=== PATIENT | female | born 1945 | race Caucasian/White ===

== ENCOUNTER 2019-05-15 07:55 | Emergency (ER) | payer OTHER, MEDICARE ==
[2019-05-15 08:14] VITALS: BP 156/81; PULSE 66; TEMP 98.3; BMI 27.3
[2019-05-15] MEDS ORDERED: ACETAMINOPHEN 325 MG TABLET (FP) PO ONE (08:37)
--- NOTE | 2019-05-15 08:38 | PDOC ---
History of Present Illness - General Chief Complaint: Injury Stated Complaint: FELL ON WRIST Time Seen by Provider: 05/15/19 08:17 History Source: Patient Exam Limitations: No Limitations Past History - Travel Traveled outside of the country in the last 30 days: No Close contact w/someone who was outside of country & ill: No - Past Medical History Allergies/Adverse Reactions: Allergies Allergy/AdvReac Type Severity Reaction Status Date / Time Penicillins Allergy Verified 05/15/19 08:07 Home Medications: Ambulatory Orders Aspirin [ASA -] 81 mg PO DAILY 05/15/19 Carvedilol 25 mg PO BID 05/15/19 Enalapril Maleate [Vasotec -] 10 mg PO DAILY 05/15/19 Furosemide 20 mg PO DAILY 05/15/19 - Psycho Social/Smoking Cessation Hx Smoking History: Never smoked Hx Alcohol Use: No Drug/Substance Use Hx: No Review of Systems - Review of Systems Able to Perform ROS?: Yes Comments:: 05/15/19 15:11 CONSTITUTIONAL: Absent: fever, chills, diaphoresis, generalized weakness, malaise, loss of appetite HEENT: Absent: rhinorrhea, nasal congestion, throat pain, throat swelling, difficulty swallowing, mouth swelling, ear pain, eye pain, visual Changes CARDIOVASCULAR: Absent: chest pain, loss of consciousness, palpitations, irregular heart rate, peripheral edema RESPIRATORY: Absent: cough, shortness of breath, dyspnea with exertion, orthopnea, wheezing, stridor, hemoptysis GASTROINTESTINAL: Absent: abdominal pain, abdominal distension, nausea, vomiting, diarrhea, constipation, melena, hematochezia GENITOURINARY: Absent: dysuria, frequency, urgency, hesitancy, hematuria, flank pain, genital pain MUSCULOSKELETAL: Present: R wrist pain Absent: myalgia, arthralgia, joint swelling SKIN: Absent: rash, itching, pallor HEMATOLOGIC/IMMUNOLOGIC: Absent: easy bleeding, easy bruising, lymphadenopathy, frequent infections ENDOCRINE: Absent: unexplained weight gain, unexplained weight loss, heat intolerance, cold intolerance NEUROLOGIC: Absent: headache, focal weakness or paresthesias, dizziness, unsteady gait, seizure, mental status changes, bladder or bowel incontinence PSYCHIATRIC: Absent: anxiety, depression, suicidal or homicidal ideation, hallucinations. Is the patient limited Yoruba proficient: No *Physical Exam - Vital Signs Last Vital Signs Temp Pulse Resp BP Pulse Ox 98.3 F 66 16 156/81 99 05/15/19 08:00 05/15/19 08:00 05/15/19 08:00 05/15/19 08:00 05/15/19 08:00 - Physical Exam Comments: 05/15/19 15:11 GENERAL: Well developed, well nourished. Awake and alert. No acute distress. HEENT: Normocephalic, atraumatic. PERRLA, EOMI. No conjunctival pallor. Sclera are non- icteric. Moist mucous membranes. Oropharynx is clear. NECK: Supple. Full ROM. No JVD. Carotid pulses 2+ and symmetric, without bruits. No thyromegaly. No lymphadenopathy. CARDIOVASCULAR: Regular rate and rhythm. No murmurs, rubs, or gallops. Distal pulses are 2+ and symmetric. PULMONARY: No evidence of respiratory distress. Lungs clear to auscultation bilaterally. No wheezing, rales or rhonchi. ABDOMINAL: Soft. Non-tender. Non-distended. No rebound or guarding. No organomegaly. Normoactive bowel sounds. MUSCULOSKELETAL Patient unable to range the right wrist with obvious deformity and swelling. PMS intact for the right hand. Full range of motion of the right elbow noted. No CVA tenderness. EXTREMITIES: No cyanosis. No clubbing. No edema. No calf tenderness. SKIN: Abrasion noted to the nose and left eyebrow. Warm and dry. Normal capillary refill. No rashes. No jaundice. NEUROLOGICAL: Alert, awake, appropriate. Cranial nerves 2-12 intact. No deficits to light touch and temperature in face, upper extremities and lower extremities. No motor deficits in the in face, upper extremities and lower extremities. Normoreflexic in the upper and lower extremities. Normal speech. Toes are down- going bilaterally. Gait is normal without ataxia. PSYCHIATRIC: Cooperative. Good eye contact. Appropriate mood and affect. Procedures - Splinting Splint Location: Right: Wrist Pre-Proc Neuro Vasc Exam: normal Hand-Made Type: orthoglass Splint Type: Yes: Brittney Tong Post-Proc Neuro Vasc Exam: unchanged from pre-exam Pako Bandage: 4" Sling: Yes Post splint xray: Yes Good repositioning: Yes (after 3rd reduction attempt) - Joint Reduction Right Joint Reduction Site: right: Colles' Fracture Pre-Procedure NV Exam: normal Conscious Sedation: No Finger Block: Hematoma Anesthetic: 2% Lidocaine Amount (mL): 10 Procedure: Colles Reduction Post-Procedure NV Exam: normal Complications: No Medical Decision Making - Medical Decision Making 05/15/19 15:12 The patient is a 73-year-old female with past medical history of hypertension, hyperlipidemia, presents to the ER today with right wrist pain. She states that she was walking into the supermarket when she tripped on the curb and fell. She states that she had her right hand outstretched to catch her fall. She states that since falling she is unable to move her right wrist. She notes that she scraped her nose and her left eyebrow. She denies loss of consciousness and is not on blood thinners. Denies fevers, chills, numbness and tingling to the affected extremity. The patient is right-hand dominant. A/P: Right Colles' fracture On exam patient unable to range the right wrist due to pain and swelling of the joint. Obvious deformity noted. X-ray shows a displaced Colles' fracture. Consulted with KAIN Wright for Drs. Cook and Mark. Recommends reduction and splinting at this time. Hematoma block placed after consent was obtained. The right wrist was reduced after 3 attempts. See procedure note. Patient placed in sugar tong splint and discharged home with sling. Tylenol given for pain, patient refuses any opioids Strict return precautions given. Explained to patient that she needs to follow- up with orthopedics on Friday for further management of her injury especially since she has affected her dominant hand. Discharge home. I discussed the physical exam findings, ancillary test results and final diagnoses with the patient. I answered all of the patient's questions. The patient was satisfied with the care received and felt comfortable with the discharge plan and treatment plan. The Patient agrees to follow up with the primary care physician/specialist within 24-72 hours. Return precautions were given. Discharge - Discharge Information Problems reviewed: Yes Clinical Impression/Diagnosis: Fracture, Colles, right, closed Qualifiers: Encounter type: initial encounter Qualified Code(s): S52.531A - Colles' fracture of right radius, initial encounter for closed fracture Condition: Good Disposition: HOME - Follow up/Referral Referrals: Beto Cook MD [Staff Physician] - Td Flores MD [Staff Physician] - - Patient Discharge Instructions Patient Printed Discharge Instructions: DI for Wrist Fracture, How to Prevent Falls Additional Instructions: You were evaluated for your broken wrist today. A splint was placed. Do not remove the splint until you can see orthopedics. Keep the splint dry. Do not get it wet while showering. You may put a plastic bag over the wrist. Please take Tylenol 650 mg every 6 hours for pain. Please wear the sling during the day to help keep the wrist elevated Please call orthopedics on Friday for a follow-up this week. The referral for Dr. Cook and Dr. Flores has been provided. Return to the ER for worsening pain, numbness and tingling to the arm, or if you have any changes in your symptoms. - Post Discharge Activity
[2019-05-15] MEDS ORDERED: ACETAMINOPHEN 325 MG TABLET (FP) ONE (09:18)
[2019-05-15] MEDS ORDERED: LIDOCAINE HCL 2% (50ML VIAL) SQ ONE (09:39)
[2019-05-15] MEDS ORDERED: LIDOCAINE HCL 2% (20ML MULTI-DOSE VIAL) NR ONE (09:54)
--- NOTE | 2019-05-15 10:46 | PDOC ---
*Physical Exam - Vital Signs Last Vital Signs Temp Pulse Resp BP Pulse Ox 98.3 F 66 16 156/81 99 05/15/19 08:00 05/15/19 08:00 05/15/19 08:00 05/15/19 08:00 05/15/19 08:00 ED Treatment Course - Medications Given in the ED: ED Medications Discontinued Medications Generic Name Dose Route Start Last Admin Trade Name Hermila PRN Reason Stop Dose Admin Lidocaine HCl 10 mg 05/15/19 09:39 05/15/19 10:23 Xylocaine 2% SQ 05/15/19 09:40 10 mg ONCE ONE Administration Medical Decision Making - Medical Decision Making 05/15/19 10:42 The patient was seen and evaluated in conjunction with midlevel provider under my direct supervision, ancillary studies were reviewed. I agree with the plan as outlined with KAIN Banda. HPI, workup/dispo as outlined. VS reviewed, wnl. xray with right colles fx after foosh neurovasc intact. obvious deformity noted. POCUS MSK performed at bedside for rt wrist pain, hematoma block. views obtained : long axis of right wrist, distal radius fracture. hematoma noted. findings include distal radius/colles fx. Impression: fracture, hematoma block procedural guidance hematoma block with local 2% anesthesia, 10ml. US guidance for procedure. hematoma identified. neg aspiration. infiltrated appropriately. no complications. fracture reduced with hyperextension then flexion and manual pressure, with traction. i supervised procedure with KAIN Banda, see separate procedure notes sugar tong splint post red Xray f/u Joey/Mark, had consulted and spoke with KAIN Wright. anticipate discharge, pcp followup, return precautions, splint care instructions 05/15/19 10:42 05/15/19 10:45 Discharge - Discharge Information Problems reviewed: Yes Clinical Impression/Diagnosis: Fracture, Colles, right, closed Qualifiers: Encounter type: initial encounter Qualified Code(s): S52.531A - Colles' fracture of right radius, initial encounter for closed fracture Condition: Good Disposition: HOME - Admission No - Follow up/Referral Referrals: Beto Cook MD [Staff Physician] - Td Flores MD [Staff Physician] - - Patient Discharge Instructions Patient Printed Discharge Instructions: DI for Wrist Fracture, How to Prevent Falls - Post Discharge Activity
== END 2019-05-15 13:05 | disposition home or self-care (01) ==
LOC: JER 07:55
PROC: 0PSHXZZ Reposition Right Radius, External Approach (ICD-10-PCS; principal; 2019-05-15)
PROC: 3E023BZ Introduction of Anesthetic Agent into Muscle, Percutaneous Approach (ICD-10-PCS; 2019-05-15)
DX: S52.531A Colles' fracture of right radius, initial encounter for closed fracture (principal); W10.1XXA Fall (on)(from) sidewalk curb, initial encounter; Y93.01 Activity, walking, marching and hiking; Y92.512 Supermarket, store or market as the place of occurrence of the external cause; Y99.8 Other external cause status; I10 Essential (primary) hypertension; E78.5 Hyperlipidemia, unspecified; Z88.0 Allergy status to penicillin
CPT/HCPCS: 25605; 73110-TC-RT-FY; 73130-TC-RT-FY; 76882-TC-RT; 96372; 99282-25

== ENCOUNTER 2019-05-20 06:08 | Day surgery (SDC) | payer OTHER, MEDICARE ==
[2019-05-18 18:42] VITALS: BMI 27.6
--- NOTE | 2019-05-20 08:29 | HP ---
Satellite PMH - Chief Complaint Chief Complaint: right wrist fx - Past Medical History Allergies/Adverse Reactions: Allergies Allergy/AdvReac Type Severity Reaction Status Date / Time Penicillins Allergy Verified 05/20/19 08:24 spinach Allergy Swelling Verified 05/20/19 08:24 - Current Medications Current Medications: Home Medications Medication Instructions Recorded Aspirin [ASA -] 81 mg PO DAILY 05/15/19 Carvedilol 25 mg PO BID 05/15/19 Enalapril Maleate [Vasotec -] 10 mg PO BID 05/15/19 Furosemide 20 mg PO DAILY 05/15/19 Hydrocodone/Acetaminophen 1 each PO Q6H #20 tablet MDD 4 05/20/19 [Hydrocodone-Acetamin 5-325 mg] Satellite Physical Exam - Physical Examination Vital Signs: Vital Signs Period Temp Pulse Resp BP Sys/Acevedo Pulse Ox Last 24 Hr 98.0 F 64 16 128/66 99 General Appearance: Well Nourished, Well Developed, Alert & Oriented x3 ENT: Clear Lung: Normal air movement Extremities: Other (right wrist- + deformity, + swelling, + ttp, decr rom, nvi, xrays show displaced distal radius fx) Neurological: Intact, Alert, Oriented Satellite Impression/Plan - Impression/Plan Impression: right distal radius fx Operative Procedure: right distal radius orif Date to be Performed: 05/20/19
[2019-05-20] MEDS ORDERED: MIDAZOLAM HCL 2 MG/2 ML SINGLE DOSE VIAL ONE (09:59)
[2019-05-20] MEDS ORDERED: ROPIVACAINE HCL 0.5% 30ML VIAL ONE (10:22)
[2019-05-20] MEDS ORDERED: LIDOCAINE HCL 1%, 10 MG/ML (20ML VIAL) ONE (10:34)
[2019-05-20] MEDS ORDERED: PROPOFOL 20 ML ONE (10:54)
[2019-05-20] MEDS ORDERED: ceFAZolin SODIUM 1 GM VIAL ONE (10:54)
[2019-05-20] MEDS ORDERED: ceFAZolin SODIUM 1 GM VIAL IVPB ONE (11:06)
--- NOTE | 2019-05-20 12:15 | OP ---
Operative Note - Note: Operative Date: 05/20/19 Pre-Operative Diagnosis: right distal radius fracture Operation: right distal radius ORIF, Brachioradialis tenotomy Implants: XipLink low profile DVR plate and screws Surgeon: Td Flores Anesthesiologist/PAPER PRODUCTS MACHINE OPERATOR: Josesito Lujan Anesthesia: General, Local, MAC Estimated Blood Loss (mls): 0 Drains, Volume Out (mls): 0 Blood Volume Replaced (mls): 0 Fluid Volume Replaced (mls): 1,000 Operative Report Dictated: Yes
[2019-05-20 13:30] VITALS: TEMP 97.5
--- NOTE | 2019-05-20 14:31 | OP ---
DATE OF OPERATION: 05/20/2019 PREOPERATIVE DIAGNOSIS: Right distal radius fracture, intra-articular, angulated, and displaced. POSTOPERATIVE DIAGNOSIS: Right distal radius fracture, intra-articular, angulated, and displaced. PROCEDURE: Right distal radius open reduction internal fixation and brachioradialis tenotomy. SURGEON: Td Flores MD WASTE PAPER HAMMERMILL OPERATOR: None. ANESTHESIA: Josesito Lujan MD, right interscalene block with sedation. DRAINS: None. COMPLICATIONS: None. BLOOD LOSS: None. BLOOD GIVEN: None. FLUID REPLACEMENT: 1000 mL Plasma-Lyte. SPECIMEN: None. INDICATIONS: This patient is a 73-year-old female with a preoperative diagnosis of a posttraumatic right displaced, angulated, intra-articular distal radius fracture. After understanding the potential risks, complications, alternatives, and benefits to surgery versus nonsurgical treatment, the patient elected to undergo this procedure. She understands she may not get complete relief of her symptoms. She may need physical therapy. There is a lifelong risk of infection, breaking of the hardware, and need for additional surgery. DESCRIPTION OF PROCEDURE: The entire case was done under 3.8 loupe magnification. Typical FCR approach was marked out with a marking pen and incision made with No. 15 scalpel blade. Subcutaneous hemostasis was achieved with a bipolar cautery. The radial artery was retracted gently in a radial direction and ulnar to this, using a fresh No. 15 scalpel blade, the muscular fascia was incised. Blunt dissection was done with my index finger down to the volar aspect of the distal radius. Weitlaner retractors were placed deep into the wound for visualization. A periosteal elevator was used to do subperiosteal dissection exposing the fracture site. There was a main transverse component to the distal radius fracture but in addition there were several pieces, some extending towards the radial carpal joint and some towards the distal radial ulnar joint. The fracture site was copiously irrigated and washed out. All debris including hematoma and muscle were removed. A provisional reduction was performed and seemed to come together quite nicely. There was a small metaphyseal defect. X-rays were taken in A-P and lateral planes documenting excellent position of the fracture fragments, restoring radial height inclination and volar tilt. Next a standard hand innovations left volar low profile DVR plate was placed on the volar aspect of the distal radius. Two K-wires were placed and x-rays were taken documenting excellent position, length and subchondral position. Next the central 3.5 mm screw was placed in a standard fashion, this was 14 mm in length, and the second-most ulnar proximal row screw was placed. This was a 24 mm partially threaded locking screw. X-rays again were taken documenting excellent position and support of the subchondral bone. The rest of the screws were then put in, first 3 proximal 3.5-mm screws of 10 mm, 12 mm, and 12 mm in length and we used 6 distal screws from 20-22 mm in length all partially threaded locking. All of the guides were removed and passed off the field. Final x-rays were taken in A-P and lateral planes. I was quite happy with the fracture reduction position, position of the radial carpal joint, distal radial ulnar joint length, height and tilt. Tourniquet time 51 minutes. No complications. Splint was applied. Breanna [id number]
[2019-05-20 16:03] VITALS: BP 130/70; PULSE 50
== END 2019-05-20 15:00 | disposition home or self-care (01) ==
LOC: JASU-SURG 06:08
PROVIDERS: ATTEND Orthopaedic Surgery
PROC: 0PSH04Z Reposition Right Radius with Internal Fixation Device, Open Approach (ICD-10-PCS; principal; 2019-05-20 10:00)
DX: S52.571A Other intraarticular fracture of lower end of right radius, initial encounter for closed fracture (principal); X58.XXXA Exposure to other specified factors, initial encounter; Y93.9 Activity, unspecified; Y92.9 Unspecified place or not applicable; Y99.9 Unspecified external cause status
CPT/HCPCS: 25608; C1713; 76000-TC-FY; 94760

== ENCOUNTER 2022-09-14 13:28 | Emergency (ER) | payer OTHER, MEDICARE ==
[2022-09-14 13:32] VITALS: BMI 28.5
[2022-09-14] MEDS ORDERED: ACETAMINOPHEN 1000 MG/100 ML BAG IVPB ONE (13:54)
[2022-09-14] MEDS ORDERED: ACETAMINOPHEN 325 MG TABLET (FP) PO ONE (14:12)
[2022-09-14] MEDS ORDERED: ACETAMINOPHEN 325 MG TABLET (FP) ONE (14:15)
[2022-09-14 14:26] LABS: HEMOGLOBIN 14.2 GM/dL (10.7-15.3); MCH 29.3 pg (25.7-33.7); MCHC 33.1 g/dl (32.0-36.0); MEAN CELL VOLUME 88.6 fl (80-96); MEAN PLT VOLUME 10.1 fl (7.5-11.1); PLATELET COUNT 145 10^3/uL (134-434); RBC 4.86 M/mm3 (3.60-5.2); RDW 14.3 % (11.6-15.6)
[2022-09-14 14:28] VITALS: RESP 18
[2022-09-14 14:29] LABS: VENOUS BASE EXCESS 3.2 mmol/L (-2-2); VENOUS O2 SATURATION 40.4 % (70-80); VENOUS PCO2 43.8 mmHg (38-52); VENOUS PH 7.425 (7.310-7.410)
[2022-09-14 14:41] LABS: INR 1.24 (0.83-1.09); PROTHROMBIN TIME (PATIENT) 14.4 SEC (9.7-13.0)
[2022-09-14 14:43] LABS: ACTIVATED PTT 32.8 SECONDS (25.2-36.5); ALBUMIN 3.5 g/dl (3.4-5.0); BLOOD UREA NITROGEN 8.2 mg/dL (7-18)
[2022-09-14 14:45] LABS: CREATININE 0.7 mg/dL (0.55-1.3)
[2022-09-14 14:48] LABS: BILIRUBIN,TOTAL 0.5 mg/dL (0.2-1); TOT PROT 7.1 g/dl (6.4-8.2)
[2022-09-14 14:53] LABS: ANISOCYTOSIS 0; HELMET CELLS 0; HOWELL-JOLLY BODIES 0; MACROCYTOSIS 0; OVALOCYTE 0; ROULEAU 0; SICKELED CELLS 0; TARGET CELLS 0; TEAR DROP CELLS 0; TOXIC GRANULATION 0
[2022-09-14 15:43] LABS: EPI CELLS 7 /uL (0-25.1); HYALINE CASTS 0 /uL (0-3.1); URINE APPEARANCE CLEAR; URINE BACTERIA 17 /uL (0-1359); URINE BILIRUBIN NEGATIVE (NEGATIVE); URINE COLOR YELLOW; URINE GLUCOSE (UA) NEGATIVE (NEGATIVE); URINE KETONE NEGATIVE (NEGATIVE); URINE LEUK ESTERASE 2+ (NEGATIVE); URINE NITRITE NEGATIVE (NEGATIVE); URINE PROTEIN NEGATIVE (NEGATIVE); URINE RBC 389 /uL (0-23.9); URINE UROBILINOGEN 0.2 mg/dL (0.2-1.0); URINE WBC 55 /uL (0-25.8)
[2022-09-14] MEDS ORDERED: CEFTRIAXONE 1,000 MG in DEXTROSE 5%-WATER - 50 ML IVPB ONE (16:47)
[2022-09-14] MEDS ORDERED: CEFTRIAXONE 1 GM/50 ML BAG ONE (16:57)
[2022-09-14 18:34] VITALS: BP 128/78; PULSE 94; TEMP 99.4
== END 2022-09-14 18:34 | disposition home or self-care (01) ==
LOC: JERFT 13:28
DX: U07.1 COVID-19 (principal); I44.7 Left bundle-branch block, unspecified
CPT/HCPCS: 0241U-QW; 36415; 71045-TC-FY; 80053; 81003; 82553; 82803; 83605; 84484; 85025; 85610; 85730; 86850; 86900; 86901; 87040; 87086; 93005; 93010; 99285-25